=== PATIENT | male | born 1980 | race Caucasian/White ===

== ENCOUNTER 2020-01-13 21:43 | Emergency (ER) | payer MEDICAID ==
--- NOTE | 2020-01-13 22:20 | EDM.PDOC ---
ED HPI GENERAL MEDICAL PROBLEM - General Chief Complaint: Behavioral/Psych Stated Complaint: MH EVAL Time Seen by Provider: 01/13/20 22:00 - History of Present Illness INITIAL COMMENTS - FREE TEXT/NARRATIVE: 39-year-old brought in by law enforcement for evaluation. Patient states that he was pulled over for drunk driving and he intentionally became belligerent and threatened to hurt himself to the officers. However he says he is not suicidal has no intent to harm himself in any way or kill himself. The patient is acutely intoxicated. Patient has HIV. He denies any other complaints at this time and again denies any suicidal intent. His medications are unknown. - Related Data Allergies Allergy/AdvReac Type Severity Reaction Status Date / Time No Known Allergies Allergy Verified 01/13/20 22:12 Home Meds: Home Meds Elviteg/Cob/Emtri/Tenof Alafen [Genvoya Tablet] 1 tab PO DAILY 01/13/20 [History] buPROPion [Wellbutrin] 1 tab PO DAILY 01/13/20 [History] hydrOXYzine HCL [hydrOXYzine] 25 mg PO BEDTIME PRN 01/13/20 [History] ED ROS GENERAL - Review of Systems Review Of Systems: See Below Constitutional: Reports: No Symptoms HEENT: Reports: No Symptoms Respiratory: Reports: No Symptoms Cardiovascular: Reports: No Symptoms Endocrine: Reports: No Symptoms GI/Abdominal: Reports: No Symptoms : Reports: No Symptoms Musculoskeletal: Reports: No Symptoms Skin: Reports: No Symptoms Neurological: Reports: No Symptoms Psychiatric: Reports: No Symptoms Hematologic/Lymphatic: Reports: No Symptoms ED EXAM, GENERAL - Physical Exam Exam: See Below Exam Limited By: Intoxication (Intoxicated but very cooperative) General Appearance: Alert, No Apparent Distress Eye Exam: Bilateral Eye: Normal Inspection Ears: Normal External Exam, Normal Canal, Hearing Grossly Normal, Normal TMs Nose: Normal Inspection, Normal Mucosa, No Blood Throat/Mouth: Normal Inspection, Normal Oropharynx, Normal Voice, No Airway Compromise Head: Atraumatic, Normocephalic Neck: Normal Inspection, Supple, Limited Range of Motion. No: Lymphadenopathy (L), Lymphadenopathy (R) Respiratory/Chest: No Respiratory Distress, Lungs Clear Cardiovascular: Regular Rate, Rhythm, No Edema, No Murmur GI/Abdominal: Normal Bowel Sounds, Soft, Non-Tender Back Exam: Normal Inspection. No: CVA Tenderness (L), CVA Tenderness (R) Extremities: Normal Inspection, Normal Range of Motion, No Pedal Edema Neurological: Alert, Oriented, Other (Toxic aided) Psychiatric: Other (He denies any suicidal wishes intent or has no intention to harm anybody he said it was a big show for the police) Skin Exam: Warm, Dry, Intact Lymphatic: No Adenopathy Course - Vital Signs Last Recorded V/S: Last Vital Signs Temp 36.6 C 01/13/20 22:05 Pulse 93 01/13/20 22:05 Resp 20 01/13/20 22:05 BP 145/103 H 01/13/20 22:05 Pulse Ox 99 01/13/20 22:05 - Re-Assessments/Exams Free Text/Narrative Re-Assessment/Exam: 01/13/20 22:21 The patient's mother is here and will supervise him the patient has been discha rged from police custody. We will discharge him to his mother who is sober. Departure - Departure Time of Disposition: 22:21 Disposition: Home, Self-Care 01 Clinical Impression: Alcohol intoxication - Discharge Information Referrals: PCP,Not In Area [Primary Care Provider] - Forms: ED Department Discharge Additional Instructions: Return to the emergency room with any questions problems or concerning symptoms. Follow-up with [facility] services tomorrow morning at 8:00 [phone] Discussed your alcoholism with them and any other psychiatric problems Sepsis Event Note (ED) - Evaluation Sepsis Screening Result: No Definite Risk - Focused Exam Vital Signs: Vital Signs Temp Pulse Resp BP Pulse Ox 01/13/20 22:05 36.6 C 93 20 145/103 H 99
== END 2020-01-13 22:33 | disposition home or self-care (01) ==
LOC: JD.ED 21:43
DX: F10.129 Alcohol abuse with intoxication, unspecified (principal); B20 Human immunodeficiency virus [HIV] disease; Z79.899 Other long term (current) drug therapy
CPT/HCPCS: 99283; 99284